=== PATIENT | female | born 1955 | race African-American/Black ===

== ENCOUNTER → 2016-05-18 | Outpatient (REF) | payer OTHER | LOC: M SFHCLERA 15:15 | PROVIDERS: ATTEND Family Medicine | DX: Z00.00 Encounter for general adult medical examination without abnormal findings (principal); E03.9 Hypothyroidism, unspecified; Z53.9 Procedure and treatment not carried out, unspecified reason ==

== ENCOUNTER → 2016-05-21 | Outpatient (REF) | payer OTHER ==
[2016-05-21 12:08] LABS: ALBUMIN 3.5 GM/DL (3.2-5.2); ALBUMIN/GLOBULIN RATIO 0.83 (1.00-1.93); ALKALINE PHOSPHATASE 67 U/L (45-117); ALT/SGPT 36 U/L (12-78); ANION GAP 7 MEQ/L (8-16); AST/SGOT 26 U/L (15-37); BILIRUBIN,TOTAL 0.5 MG/DL (0.2-1.0); BLOOD UREA NITROGEN 7 MG/DL (7-18); CALCIUM LEVEL 8.8 MG/DL (8.5-10.1); CARBON DIOXIDE LEVEL 31 MEQ/L (21-32); CHLORIDE LEVEL 101 MEQ/L (98-107); CHOLESTEROL LEVEL 211 MG/DL (<200); CREATININE FOR GFR 0.65 MG/DL (0.55-1.02); FREE T4 0.97 NG/DL (0.76-1.46); GLOMERULAR FILTRATION RATE > 60.0 (>51); GLUCOSE, FASTING 102 MG/DL (70-105); POTASSIUM SERUM 4.4 MEQ/L (3.5-5.1); SODIUM LEVEL 139 MEQ/L (136-145); TOTAL PROTEIN 7.7 GM/DL (6.4-8.2); TRIGLYCERIDES LEVEL 99 MG/DL (<150)
[2016-05-24 00:08] LABS: HEPATITIS C QUANTITATION 5215200 IU/mL (.)
== END ==
LOC: M SFHCLERA 08:33
PROVIDERS: ATTEND Family Medicine
DX: R73.02 Impaired glucose tolerance (oral) (principal); E03.9 Hypothyroidism, unspecified; B19.20 Unspecified viral hepatitis C without hepatic coma
CPT/HCPCS: 80053; 80061; 84439; 84443; 87522; G0463

== ENCOUNTER → 2016-07-01 | Outpatient (CLI) | payer OTHER ==
[2016-07-01 12:45] LABS: BASO % 0.3 % (0.0-1.0); EOS # 0.2 K/mm3 (0.0-0.50); EOS % 3.5 % (0.0-3.0); LARGE UNSTAINED CELL # 0.2 K/mm3 (0.0-0.4); LARGE UNSTAINED CELL % 3.2 % (0.0-4.0); LYMPH # 1.6 K/mm3 (1.5-4.5); LYMPH % 28.8 % (24.0-44.0); MEAN CORPUSCULAR HEMOGLOBIN 27.5 pg (27.0-33.0); MEAN CORPUSCULAR HGB CONC 32.2 g/dl (32.0-36.5); MEAN CORPUSCULAR VOLUME 85.3 fl (80.0-96.0); MONO # 0.4 K/mm3 (0.0-0.8); MONO % 8.3 % (0.0-5.0); NEUTROPHILS # 2.9 K/mm3 (1.8-7.7); PLATELET COUNT, AUTOMATED 320 k/mm3 (150-450); RED CELL DISTRIBUTION WIDTH 14.5 % (11.5-14.5); WHITE BLOOD COUNT 5.2 K/mm3 (4.0-10.0)
[2016-07-01 12:59] LABS: ALBUMIN 3.3 GM/DL (3.2-5.2); ALBUMIN/GLOBULIN RATIO 0.79 (1.00-1.93); ALKALINE PHOSPHATASE 67 U/L (45-117); ALT/SGPT 44 U/L (12-78); ANION GAP 6 MEQ/L (8-16); AST/SGOT 27 U/L (15-37); BILIRUBIN,TOTAL 0.4 MG/DL (0.2-1.0); BLOOD UREA NITROGEN 13 MG/DL (7-18); CALCIUM LEVEL 8.4 MG/DL (8.5-10.1); CARBON DIOXIDE LEVEL 32 MEQ/L (21-32); CHLORIDE LEVEL 100 MEQ/L (98-107); CREATININE FOR GFR 0.61 MG/DL (0.55-1.02); GLOMERULAR FILTRATION RATE > 60.0 (>51); GLUCOSE, FASTING 101 MG/DL (70-105); POTASSIUM SERUM 4.4 MEQ/L (3.5-5.1); SODIUM LEVEL 138 MEQ/L (136-145); TOTAL PROTEIN 7.5 GM/DL (6.4-8.2)
== END ==
LOC: M LAB 10:54
PROVIDERS: ATTEND Internal Medicine Infectious Disease
DX: B18.2 Chronic viral hepatitis C (principal); E03.9 Hypothyroidism, unspecified; R73.02 Impaired glucose tolerance (oral)

== ENCOUNTER → 2016-07-01 | Outpatient (CLI) | payer OTHER ==
[2016-07-01 13:06] LABS: ALBUMIN 3.3 GM/DL (3.2-5.2); ALKALINE PHOSPHATASE 64 U/L (45-117); ALT/SGPT 42 U/L (12-78); ANION GAP 5 MEQ/L (8-16); AST/SGOT 25 U/L (15-37); BILIRUBIN,TOTAL 0.4 MG/DL (0.2-1.0); BLOOD UREA NITROGEN 12 MG/DL (7-18); CALCIUM LEVEL 8.4 MG/DL (8.5-10.1); CARBON DIOXIDE LEVEL 33 MEQ/L (21-32); CHLORIDE LEVEL 100 MEQ/L (98-107); CHOLESTEROL LEVEL 180 MG/DL (<200); CREATININE FOR GFR 0.63 MG/DL (0.55-1.02); FREE T4 1.18 NG/DL (0.76-1.46); GLOMERULAR FILTRATION RATE > 60.0 (>51); GLUCOSE, FASTING 102 MG/DL (70-105); POTASSIUM SERUM 4.5 MEQ/L (3.5-5.1); SODIUM LEVEL 138 MEQ/L (136-145); TOTAL PROTEIN 7.4 GM/DL (6.4-8.2); TRIGLYCERIDES LEVEL 98 MG/DL (<150)
== END ==
LOC: M LAB 10:50
PROVIDERS: ATTEND Family Medicine
DX: E03.9 Hypothyroidism, unspecified (principal); R73.02 Impaired glucose tolerance (oral)

== ENCOUNTER → 2016-07-13 | Outpatient (CLI) | payer OTHER ==
--- NOTE | 2016-07-13 13:27 | REP ---
LUMBAR SPINE COMPLETE: 07/13/2016. Clinical history: Low back pain. Findings: No prior study. The five views demonstrate pedicles, spinous and transverse processes grossly intact. The L1 vertebral body shows elongated transverse processes. SI joints some minor spurring inferiorly, sacral ala and foramina intact. There are pelvic phleboliths. Lower thoracic region and visualized ribs intact. Bilateral oblique views show facet arthritis L4-5, L5-S1, minimally at L3-4 with no spondylolysis or spondylolisthesis. The normal lordosis maintained. Disc space is narrowed from L3-4 through L5-S1 with anterior osteophytes. No compression deformity of destructive lesion. Impression: 1. Degenerative disc changes at L3-4 through L5-S1 with facet arthropathy and sacroiliitis showing sclerosis and some vacuum phenomenon in the lower aspects of both SI joints. 2. No compression deformity, destructive lesion or other acute finding. Normal gentle lordosis maintained. No spondylolysis, spondylolisthesis or other acute finding. Signed by Javier Hernandez MD 07/13/2016 03:04 P
== END ==
LOC: M LRY 11:35
PROVIDERS: ATTEND Family Medicine
DX: M54.5 Low back pain (principal)
CPT/HCPCS: 72110; G0463

== ENCOUNTER → 2016-08-20 | Outpatient (REF) | payer OTHER | LOC: M SFHCPLAZ 13:15 | PROVIDERS: ATTEND Internal Medicine Infectious Disease | DX: B18.2 Chronic viral hepatitis C (principal) ==

== ENCOUNTER → 2016-11-23 | Outpatient (CLI) | payer OTHER ==
--- NOTE | 2016-11-23 16:36 | REP ---
DIAGNOSTIC MAMMOGRAM WITH DIAGNOSTIC MAMMOGRAM LEFT BREAST AND LEFT BREAST ULTRASOUND: HISTORY: Palpable abnormality with pain and tenderness 6 days in the left retroareolar region. Family history of mother with breast cancer. Moderate fibroglandular tissue is present. There is no definite change compared to prior studies, most recently 07/05/2015. No mass, architectural distortion or clustered microcalcifications are seen. No abnormalities are seen on the additional spot compression views of the left breast. Real-time sonographic evaluation of the left retroareolar region demonstrates mildly dilated ducts without a cystic or solid nodule. IMPRESSION: ACR 2 benign. Moderately dense breast parenchyma limits the sensitivity of the mammogram. No mass or clustered microcalcifications are seen. There is no mammographic or sonographic evidence of a mass in the left retroareolar region where there is reportedly a palpable abnormality. A negative mammogram and ultrasound should not deter biopsy if there is a clinically suspicious palpable mass present. Recommend followup mammogram in one year. Given the dense breast parenchyma and family history I would strongly consider MRI of the breasts. BI-RADS/ACR category 2 mammogram. Benign finding(s). Routine annual screening mammography (for women over age 40). This mammogram was interpreted with the aid of an FDA-approved computer-aided detection system. The patient states she had a clinical breast exam 10/2016. The patient letter being requested is M2. Signed by Joesph Garza MD 11/23/2016 05:27 P
== END ==
LOC: M RAD 14:31
PROVIDERS: ATTEND Family Medicine
DX: N63 Unspecified lump in breast (principal)
CPT/HCPCS: 76642; G0204

== ENCOUNTER → 2016-12-21 | Outpatient (REF) | payer OTHER ==
[2016-12-21 20:26] LABS: ANION GAP 5 MEQ/L (8-16); BLOOD UREA NITROGEN 12 MG/DL (7-18); CALCIUM LEVEL 9.3 MG/DL (8.5-10.1); CARBON DIOXIDE LEVEL 31 MEQ/L (21-32); CHLORIDE LEVEL 99 MEQ/L (98-107); CREATININE FOR GFR 0.67 MG/DL (0.55-1.02); GLOMERULAR FILTRATION RATE > 60.0 (>51); GLUCOSE, FASTING 91 MG/DL (70-105); POTASSIUM SERUM 4.1 MEQ/L (3.5-5.1); SODIUM LEVEL 135 MEQ/L (136-145)
== END ==
LOC: M SFHCLERA 17:31
PROVIDERS: ATTEND Family Medicine
DX: E66.01 Morbid (severe) obesity due to excess calories (principal)

== ENCOUNTER → 2017-01-11 | Outpatient (CLI) | payer OTHER ==
[2017-01-11 20:29] LABS: ALBUMIN 3.6 GM/DL (3.2-5.2); ALBUMIN/GLOBULIN RATIO 0.86 (1.00-1.93); ALKALINE PHOSPHATASE 77 U/L (45-117); ALT/SGPT 64 U/L (12-78); ANION GAP 8 MEQ/L (8-16); AST/SGOT 24 U/L (15-37); BILIRUBIN,TOTAL 0.3 MG/DL (0.2-1.0); BLOOD UREA NITROGEN 13 MG/DL (7-18); CALCIUM LEVEL 8.9 MG/DL (8.5-10.1); CARBON DIOXIDE LEVEL 31 MEQ/L (21-32); CHLORIDE LEVEL 100 MEQ/L (98-107); CHOLESTEROL LEVEL 169 MG/DL (<200); CREATININE FOR GFR 0.62 MG/DL (0.55-1.02); GLOMERULAR FILTRATION RATE > 60.0 (>51); GLUCOSE, FASTING 97 MG/DL (70-105); POTASSIUM SERUM 4.2 MEQ/L (3.5-5.1); SODIUM LEVEL 139 MEQ/L (136-145); TOTAL PROTEIN 7.8 GM/DL (6.4-8.2); TRIGLYCERIDES LEVEL 72 MG/DL (<150)
== END ==
LOC: M LRY 16:41
PROVIDERS: ATTEND Internal Medicine Cardiovascular Disease
DX: I10 Essential (primary) hypertension (principal); Z01.84 Encounter for antibody response examination

== ENCOUNTER → 2017-01-11 | Outpatient (REF) | payer OTHER | LOC: M SFHCLERA 16:40 | PROVIDERS: ATTEND Family Medicine | DX: Z01.84 Encounter for antibody response examination (principal) ==

== ENCOUNTER → 2017-01-17 | Outpatient (REF) | payer OTHER | LOC: M SFHCLERA 09:18 | PROVIDERS: ATTEND Family Medicine | DX: E03.9 Hypothyroidism, unspecified (principal) ==

== ENCOUNTER → 2017-02-28 | Outpatient (REF) | payer OTHER ==
[2017-02-28 14:18] LABS: ALBUMIN 3.4 GM/DL (3.2-5.2); ALBUMIN/GLOBULIN RATIO 0.81 (1.00-1.93); ALKALINE PHOSPHATASE 62 U/L (45-117); ALT/SGPT 20 U/L (12-78); ANION GAP 8 MEQ/L (8-16); AST/SGOT 10 U/L (7-37); BILIRUBIN,TOTAL 0.3 MG/DL (0.2-1.0); BLOOD UREA NITROGEN 8 MG/DL (7-18); CARBON DIOXIDE LEVEL 32 MEQ/L (21-32); CHLORIDE LEVEL 98 MEQ/L (98-107); CREATININE FOR GFR 0.57 MG/DL (0.55-1.02); GLOMERULAR FILTRATION RATE > 60.0 (>51); GLUCOSE, FASTING 95 MG/DL (70-105); POTASSIUM SERUM 4.2 MEQ/L (3.5-5.1); SODIUM LEVEL 138 MEQ/L (136-145); TOTAL PROTEIN 7.6 GM/DL (6.4-8.2)
== END ==
LOC: M SFHCLERA 09:57
PROVIDERS: ATTEND Family Medicine
DX: E03.9 Hypothyroidism, unspecified (principal); B18.2 Chronic viral hepatitis C

== ENCOUNTER → 2017-05-27 | Outpatient (REF) | payer OTHER ==
[2017-05-27 21:39] LABS: ESTIMATED AVERAGE GLUCOSE 137 MG/DL (60-110); HEMOGLOBIN A1c 6.4 %
== END ==
LOC: M SFHCLERA 08:23
DX: R73.02 Impaired glucose tolerance (oral) (principal); E03.9 Hypothyroidism, unspecified

== ENCOUNTER → 2017-11-04 | Outpatient (REF) | payer OTHER ==
[2017-11-04 11:54] LABS: BASO % 0.6 % (0.0-1.0); EOS # 0.1 10^3/uL (0.0-0.50); EOS % 2.5 % (0.0-3.0); HEMATOCRIT 42.1 % (36.0-47.0); HEMOGLOBIN 13.6 g/dl (12.0-15.5); IMMATURE GRANULOCYTE % 0.2 % (0-3.0); LYMPH # 1.6 10^3/uL (1.5-4.5); LYMPH % 31.1 % (24.0-44.0); MEAN CORPUSCULAR HEMOGLOBIN 27.3 pg (27.0-33.0); MEAN CORPUSCULAR HGB CONC 32.3 g/dl (32.0-36.5); MEAN CORPUSCULAR VOLUME 84.4 fl (80.0-96.0); MONO # 0.6 10^3/uL (0.0-0.8); MONO % 11.8 % (0.0-5.0); NEUTROPHILS # 2.8 10^3/uL (1.8-7.7); NEUTROPHILS % 53.8 % (36.0-66.0); PLATELET COUNT, AUTOMATED 366 10^3/uL (150-450); RED BLOOD COUNT 4.99 10^6/uL (4.00-5.40); RED CELL DISTRIBUTION WIDTH 15.6 % (11.5-14.5); WHITE BLOOD COUNT 5.2 10^3/uL (4.0-10.0)
[2017-11-04 12:20] LABS: VITAMIN B12 LEVEL 421 PG/ML
[2017-11-04 12:21] LABS: FOLATE 10.7 NG/ML
[2017-11-04 12:42] LABS: ALBUMIN 3.5 GM/DL (3.2-5.2); ALBUMIN/GLOBULIN RATIO 0.83 (1.00-1.93); ALKALINE PHOSPHATASE 58 U/L (45-117); ALT/SGPT 20 U/L (12-78); ANION GAP 7 MEQ/L (8-16); AST/SGOT 14 U/L (7-37); BILIRUBIN,TOTAL 0.4 MG/DL (0.2-1.0); BLOOD UREA NITROGEN 9 MG/DL (7-18); CALCIUM LEVEL 8.9 MG/DL (8.8-10.2); CARBON DIOXIDE LEVEL 33 MEQ/L (21-32); CHLORIDE LEVEL 100 MEQ/L (98-107); CREATININE FOR GFR 0.68 MG/DL (0.55-1.30); GLOMERULAR FILTRATION RATE > 60.0 (>45); GLUCOSE, FASTING 98 MG/DL (70-100); POTASSIUM SERUM 4.3 MEQ/L (3.5-5.1); SODIUM LEVEL 140 MEQ/L (136-145); TOTAL PROTEIN 7.7 GM/DL (6.4-8.2)
[2017-11-04 13:09] LABS: ESTIMATED AVERAGE GLUCOSE 143 MG/DL (60-110); HEMOGLOBIN A1c 6.6 %
== END ==
LOC: M SFHCLERA 08:43
DX: E03.9 Hypothyroidism, unspecified (principal); E11.9 Type 2 diabetes mellitus without complications; F10.10 Alcohol abuse, uncomplicated; I10 Essential (primary) hypertension
CPT/HCPCS: 82746

== ENCOUNTER → 2017-12-04 | Outpatient (CLI) | payer OTHER | LOC: M RAD 17:23 | DX: M75.42 Impingement syndrome of left shoulder (principal) | CPT/HCPCS: 73221 ==

== ENCOUNTER → 2017-12-31 | Outpatient (REF) | payer OTHER ==
[2017-12-31 11:50] LABS: ESTIMATED AVERAGE GLUCOSE 148 MG/DL (60-110); HEMOGLOBIN A1c 6.8 %
[2017-12-31 12:09] LABS: CHOLESTEROL LEVEL 192 MG/DL (<200); HDL CHOLESTEROL 55 MG/DL (>40); LDL CHOLESTEROL 124 MG/DL (<100); NON-HDL-C 137 MG/DL; TRIGLYCERIDES LEVEL 67 MG/DL (<150)
== END ==
LOC: M SFHCLERA 08:10
DX: E11.9 Type 2 diabetes mellitus without complications (principal)

== ENCOUNTER → 2018-01-01 | Outpatient (REF) | payer OTHER ==
[2018-01-01 20:50] LABS: MALB URINE SIEMENS 15.5 MG/L
[2018-01-01 20:53] LABS: MAU/CREAT RATIO 8.8 MCG/MG (0.0-30.0)
== END ==
LOC: M SFHCLERA 14:06
DX: E11.9 Type 2 diabetes mellitus without complications (principal)

== ENCOUNTER → 2018-02-27 | Outpatient (CLI) | payer OTHER | LOC: M RAD 17:22 | DX: Z12.31 Encounter for screening mammogram for malignant neoplasm of breast (principal); Z80.3 Family history of malignant neoplasm of breast; R92.1 Mammographic calcification found on diagnostic imaging of breast | CPT/HCPCS: 77067 ==

== ENCOUNTER → 2018-04-07 | Outpatient (REF) | payer OTHER ==
[~2018-04-07] MED LIST: AMLO10TA5 PO; LEVO100T5 PO; MELO15TA28 PO; METF500T13 PO; TIZA4CAP PO; VALS320T3 PO
[2018-04-07 13:44] LABS: BASO # 0.1 10^3/uL (0.0-0.2); BASO % 0.9 % (0.0-1.0); EOS # 0.2 10^3/uL (0.0-0.50); EOS % 2.6 % (0.0-3.0); HEMATOCRIT 41.6 % (36.0-47.0); HEMOGLOBIN 13.2 g/dl (12.0-15.5); LYMPH # 1.9 10^3/uL (1.5-4.5); LYMPH % 33.1 % (24.0-44.0); MEAN CORPUSCULAR HEMOGLOBIN 26.1 pg (27.0-33.0); MEAN CORPUSCULAR HGB CONC 31.7 g/dl (32.0-36.5); MEAN CORPUSCULAR VOLUME 82.4 fl (80.0-96.0); MONO # 0.6 10^3/uL (0.0-0.8); MONO % 11.1 % (0.0-5.0); PLATELET COUNT, AUTOMATED 361 10^3/uL (150-450); RED BLOOD COUNT 5.05 10^6/uL (4.00-5.40); WHITE BLOOD COUNT 5.7 10^3/uL (4.0-10.0)
[2018-04-07 13:54] LABS: ALBUMIN 3.7 GM/DL (3.2-5.2); ALT/SGPT 18 U/L (12-78); BILIRUBIN,TOTAL 0.3 MG/DL (0.2-1.0); BLOOD UREA NITROGEN 11 MG/DL (7-18); CALCIUM LEVEL 8.8 MG/DL (8.8-10.2); CARBON DIOXIDE LEVEL 30 MEQ/L (21-32); CHLORIDE LEVEL 103 MEQ/L (98-107); CHOLESTEROL LEVEL 197 MG/DL (<200); CHOLESTEROL RISK RATIO 3.126 (<5); CREATININE FOR GFR 0.62 MG/DL (0.55-1.30); GLOMERULAR FILTRATION RATE > 60.0 (>45); GLUCOSE, FASTING 88 MG/DL (70-100); HDL CHOLESTEROL 63 MG/DL (>40); INR 1.07; LDL CHOLESTEROL 121 MG/DL (<100); NON-HDL-C 134 MG/DL; POTASSIUM SERUM 4.7 MEQ/L (3.5-5.1); PROTHROMBIN TIME 14.1 SECONDS (12.1-14.4); SODIUM LEVEL 138 MEQ/L (136-145); TOTAL PROTEIN 7.7 GM/DL (6.4-8.2); TRIGLYCERIDES LEVEL 67 MG/DL (<150)
[2018-04-07 13:55] LABS: PARTIAL THROMBOPLASTIN TIME 33.5 SECONDS (25.4-37.6)
== END ==
LOC: M SFHCLERA 09:53
PROVIDERS: ATTEND Family Medicine
DX: Z01.812 Encounter for preprocedural laboratory examination (principal); E11.9 Type 2 diabetes mellitus without complications; E03.9 Hypothyroidism, unspecified
CPT/HCPCS: 80053; 80061; 83036; 84443; 85025; 85610; 85730; 93005; G0463

== ENCOUNTER 2018-04-09 06:18 | Day surgery (SDC) | payer OTHER ==
[~2018-04-09] VITALS: Ht 165.1 cm; Wt 114.3 kg
[~2018-04-09 06:18] MED LIST changes: +ACETAMINOPHEN 325 MG TAB PO PRN
[2018-04-09] MEDS ORDERED: LIDOCAINE 1% SDV 5 ML VIAL As Ordered ONE (06:40)
[2018-04-09] MEDS ORDERED: POVIDONE-IODINE 5% OPHTH PREP SOL 30ML As Ordered ONE (06:40)
[2018-04-09] MEDS ORDERED: TRIAMCINOLONE PRES FR 40 MG/ML 1ML(TRIESENCE)(OR EYE ONLY)(J3300 PER 1MG) As Ordered ONE (06:40)
[2018-04-09] MEDS ORDERED: MOXIFLOXACIN IN BSS 0.25MG/0.25ML INTRACAMERAL INJ (OR EYE ONLY)(J2280) As Ordered ONE (06:41)
[2018-04-09] MEDS ORDERED: HEALON DUET PRO(HEALON 10MG/ML 0.55ML & HEALON ENDOCOAT 30MG/ML 0.85ML) As Ordered ONE (06:41)
[2018-04-09] MEDS ORDERED: CYCLOPENTOLATE 2% OPHTH SOLN 2ML BTL OD ONE (07:00)
[2018-04-09] MEDS ORDERED: TROPICAMIDE 1% OPHTH SOLN 2ML OD ONE (07:00)
[2018-04-09] MEDS ORDERED: BSS with VANC/TOB/EPI for EYE CASES IR ONE (07:00)
[2018-04-09] MEDS ORDERED: PHENYLEPHRINE HCL 10 % OPHTH. SOL 5ML OD PRN (07:00)
[2018-04-09] MEDS ORDERED: OFLOXACIN 0.3 % (OCUFLOX) OPTH SOL 5ML OD ONE (07:00)
[2018-04-09] MEDS ORDERED: PHENYLEPHRINE 2.5% OPHTH SOL 2ML OD ONE (07:00)
[2018-04-09] MEDS ORDERED: LIDOCAINE 3.5 % 1ML OPHTH TOPICAL GEL OU ONE (07:00)
[2018-04-09] MEDS ORDERED: MIDAZOLAM INJ 2 MG/2 ML VIAL (J2250) As Ordered ONE (07:14)
[2018-04-09] MEDS ORDERED: PROPOFOL 200 MG/20 ML VIAL As Ordered ONE (08:18)
[2018-04-09] MEDS ORDERED: AcetaZOLAMIDE 500 MG ER CAP PO ONE (08:45)
[2018-04-09] MEDS ORDERED: ONDANSETRON 4MG/2ML VIAL (J2405) IV PRN (08:45)
[2018-04-09] MEDS ORDERED: TRIMETHOBENZAMIDE 300 MG CAP PO PRN (08:45)
[2018-04-09 09:25] VITALS: BP 143/73
--- NOTE | 2018-04-09 10:10 | RO ---
DATE OF PROCEDURE: 04/09/2018 PREOPERATIVE DIAGNOSES: Cataract and miosis right eye. POSTOPERATIVE DIAGNOSIS: Cataract and miosis right eye. PROCEDURE: Phacoemulsification with intraocular lens implantation along with Malyugin ring for miosis and ORA. Intraocular lens of AU00T, power 26.5 diopters. SURGEON: Ragini Mcelroy MD REMEDIAL PROJECT MANAGER: None. ANESTHESIA: COMPLICATIONS: None. PROCEDURE: The patient was brought to the operating room and laid in supine position. The eye was prepped and draped in a sterile fashion for ophthalmic surgery, and a lid speculum was placed. A side port incision was made and EndoCoat was injected into the anterior chamber. Temporal clear cornea incision was then made with a 2.5 mm keratome followed by injection of the 7 mm Malyugin ring to dilate the pupil with the help of the Malyugin hook. Capsulorrhexis was then done followed by hydrodissection. Phacoemulsification was then done in a divide and conquer method within the capsular bag followed by the aspiration of the cortical material, following which Healon was placed in the capsular bag and the anterior chamber. Intraocular pressure was checked and multiple ORA calculations were taken before choosing the intraocular lens, which was then subsequently inserted. Excess viscoelastic was then aspirated. The wound was hydrated, no leaks were noted. Intracameral moxifloxacin was given and sub-Tenon injection of triamcinolone was given. I forgot to mention that prior to irrigation and aspiration of the viscoelastic, Malyugin ring was removed with the help of the Malyugin hook.
== END 2018-04-10 09:50 | disposition home or self-care (01) ==
LOC: M SDC 06:18
PROVIDERS: ATTEND Ophthalmology
DX: H26.9 Unspecified cataract (principal); H57.03 Miosis; I10 Essential (primary) hypertension; R01.1 Cardiac murmur, unspecified; R73.03 Prediabetes; E03.9 Hypothyroidism, unspecified; R06.02 Shortness of breath; R06.83 Snoring; G47.9 Sleep disorder, unspecified; M54.5 Low back pain; Z79.899 Other long term (current) drug therapy; Z79.84 Long term (current) use of oral hypoglycemic drugs; Z90.710 Acquired absence of both cervix and uterus; Z87.81 Personal history of (healed) traumatic fracture; Z86.19 Personal history of other infectious and parasitic diseases
CPT/HCPCS: 66982; J2250; J2280; J3300

== ENCOUNTER 2018-05-28 05:40 | Day surgery (SDC) | payer OTHER ==
[~2018-05-28] VITALS: Ht 165.1 cm; Wt 111.6 kg
[~2018-05-28 05:40] MED LIST changes: -ACETAMINOPHEN 325 MG TAB PO PRN; +ATOR1TAB19 PO
[2018-05-28] MEDS ORDERED: ACETAMINOPHEN 325 MG TAB PO PRN (06:00)
[2018-05-28] MEDS ORDERED: TRIAMCINOLONE PRES FR 40 MG/ML 1ML(TRIESENCE)(OR EYE ONLY)(J3300 PER 1MG) As Ordered ONE (06:40)
[2018-05-28] MEDS ORDERED: LIDOCAINE 1% SDV 5 ML VIAL As Ordered ONE (06:41)
[2018-05-28] MEDS ORDERED: MOXIFLOXACIN IN BSS 0.25MG/0.25ML INTRACAMERAL INJ (OR EYE ONLY)(J2280) As Ordered ONE (06:41)
[2018-05-28] MEDS ORDERED: POVIDONE-IODINE 5% OPHTH PREP SOL 30ML As Ordered ONE (06:42)
[2018-05-28] MEDS ORDERED: HEALON DUET PRO(HEALON 10MG/ML 0.55ML & HEALON ENDOCOAT 30MG/ML 0.85ML) As Ordered ONE ×2 (06:42→08:12)
[2018-05-28] MEDS ORDERED: MIDAZOLAM INJ 2 MG/2 ML VIAL (J2250) As Ordered ONE (06:50)
[2018-05-28] MEDS ORDERED: fentaNYL 100 MCG/2 ML INJECTION (J3010) As Ordered ONE (06:50)
[2018-05-28] MEDS ORDERED: LIDOCAINE 2% W/EPIN INJ 20ML **PRES FREE As Ordered ONE (06:59)
[2018-05-28] MEDS ORDERED: TROPICAMIDE 1% OPHTH SOLN 2ML OS ONE (07:00)
[2018-05-28] MEDS ORDERED: BSS with VANC/TOB/EPI for EYE CASES IR ONE (07:00)
[2018-05-28] MEDS ORDERED: PHENYLEPHRINE HCL 10 % OPHTH. SOL 5ML OS PRN (07:00)
[2018-05-28] MEDS ORDERED: PHENYLEPHRINE 2.5% OPHTH SOL 2ML OS ONE (07:00)
[2018-05-28] MEDS ORDERED: CYCLOPENTOLATE 2% OPHTH SOLN 2ML BTL OS ONE (07:00)
[2018-05-28] MEDS ORDERED: OFLOXACIN 0.3 % (OCUFLOX) OPTH SOL 5ML OS ONE (07:00)
[2018-05-28] MEDS ORDERED: LIDOCAINE 3.5 % 1ML OPHTH TOPICAL GEL OU ONE (07:00)
[2018-05-28] MEDS ORDERED: PROPOFOL 200 MG/20 ML VIAL As Ordered ONE (08:14)
[2018-05-28] MEDS ORDERED: AcetaZOLAMIDE 500 MG ER CAP As Ordered ONE (08:34)
[2018-05-28] MEDS ORDERED: TRIMETHOBENZAMIDE 300 MG CAP PO PRN (08:45)
[2018-05-28] MEDS ORDERED: AcetaZOLAMIDE 500 MG ER CAP PO ONE ×2 (08:45→09:00)
[2018-05-28 08:55] VITALS: BP 136/72
--- NOTE | 2018-05-28 20:40 | RO ---
DATE OF PROCEDURE: 05/28/2018 PREPROCEDURE DIAGNOSIS: Cataract and miosis of left eye. POSTPROCEDURE DIAGNOSIS: Cataract and miosis of left eye. PROCEDURE: Phacoemulsification with insertion of Malyugin ring 7 mm and intraocular lens implantation using 27.0 AU00T0 intraocular lens with the help of Optiwave Refractive Analysis (ORA). SURGEON: Ragini Mcelroy MD CRIMINAL INTELLIGENCE ANALYST: None. ANESTHESIA: COMPLICATIONS: None. DESCRIPTION OF PROCEDURE: The patient was brought to the operating room and laid in supine position. The eye was prepped and draped in a sterile fashion for ophthalmic surgery and a lid speculum was placed. A sideport incision was made and EndoCoat was injected into the anterior chamber. Temporal clear corneal incision was then made with a 2.5 mm keratome followed by insertion of the 7 mm Malyugin ring with the help of the Malyugin hook. After the Malyugin ring was secured and the pupil was dilated, capsulorrhexis was done followed by hydrodissection with balanced salt solution. Phacoemulsification was then done in a divide and conquer method within the capsular bag followed by insertion of the Healon. Intraocular pressure was checked. Multiple ORA images were taken following which intraocular lens was implanted. Malyugin ring was then removed. Excess viscoelastic aspirated. Intracameral moxifloxacin and sub Tenon triamcinolone given. No leaks were noted and patient returned to recovery room in stable condition.
== END 2018-05-28 09:10 | disposition home or self-care (01) ==
LOC: M SDC 05:40
PROVIDERS: ATTEND Ophthalmology
DX: H26.9 Unspecified cataract (principal); H57.03 Miosis; E11.9 Type 2 diabetes mellitus without complications; I10 Essential (primary) hypertension; E78.5 Hyperlipidemia, unspecified; E03.9 Hypothyroidism, unspecified; E66.01 Morbid (severe) obesity due to excess calories; Z87.891 Personal history of nicotine dependence; Z79.899 Other long term (current) drug therapy; Z79.84 Long term (current) use of oral hypoglycemic drugs
CPT/HCPCS: 66982; 92015; J2250; J2280; J3010; J3300

== ENCOUNTER → 2018-06-05 | Outpatient (CLI) | payer OTHER ==
--- NOTE | 2018-06-05 20:42 | REP ---
Clinical: Right hip pain. Technique: Neutral and frog lateral views of the right hip. Findings: Mild age-related changes include subtle joint space narrowing with very minimal increased sclerosis to the acetabular roof. No acute fracture dislocation. No periarticular calcifications or loose bodies identified. Mild enthesopathy along the contour of the visualized right alice pelvis. Impression: Mild age-related changes suggested. Electronically Signed by Von Foster MD 06/05/2018 08:34 P
== END ==
LOC: M LRY 20:05
PROVIDERS: ATTEND Nurse Practitioner Family
DX: M25.551 Pain in right hip (principal); M76.891 Other specified enthesopathies of right lower limb, excluding foot

== ENCOUNTER → 2018-08-11 | Outpatient (CLI) | payer OTHER ==
[2018-08-11 21:00] LABS: HEMOGLOBIN A1c 6.9 %
== END ==
LOC: M LRY 18:14
PROVIDERS: ATTEND Family Medicine
DX: E11.9 Type 2 diabetes mellitus without complications (principal)

== ENCOUNTER → 2018-11-27 | Outpatient (REF) | payer OTHER ==
[2018-11-27 20:59] LABS: HEMOGLOBIN A1c 6.9 %
[2018-11-28 20:44] LABS: MALB URINE SIEMENS 35.1 MG/L; MAU/CREAT RATIO 16.9 MCG/MG (0.0-30.0)
== END ==
LOC: M SFHCADAM 17:15
PROVIDERS: ATTEND Family Medicine
DX: E11.9 Type 2 diabetes mellitus without complications (principal)

== ENCOUNTER → 2018-12-02 | Outpatient (REF) | payer OTHER ==
[2018-12-02 20:23] LABS: BASO # 0.1 10^3/uL (0.0-0.2); BASO % 0.7 % (0.0-1.0); EOS # 0.2 10^3/uL (0.0-0.5); EOS % 2.6 % (0.0-3.0); HEMATOCRIT 41.2 % (36.0-47.0); HEMOGLOBIN 13.1 g/dl (12.0-15.5); LYMPH % 27.5 % (24.0-44.0); MEAN CORPUSCULAR HEMOGLOBIN 26.1 pg (27.0-33.0); MEAN CORPUSCULAR HGB CONC 31.8 g/dl (32.0-36.5); MEAN CORPUSCULAR VOLUME 82.1 fl (80.0-96.0); MONO # 0.7 10^3/uL (0.0-0.8); MONO % 9.1 % (0.0-5.0); NEUTROPHILS # 4.4 10^3/uL (1.5-8.5); PLATELET COUNT, AUTOMATED 350 10^3/uL (150-450); RED BLOOD COUNT 5.02 10^6/uL (4.00-5.40); WHITE BLOOD COUNT 7.3 10^3/uL (4.0-10.0)
[2018-12-02 20:36] LABS: APPEARANCE, URINE CLEAR (CLEAR); BACTERIA, URINE AUTO NEGATIVE (NEGATIVE); BILIRUBIN, URINE AUTO NEGATIVE (NEGATIVE); BLOOD, URINE BLOOD NEGATIVE (NEGATIVE); COLOR, URINE STRAW (YELLOW); GLUCOSE, URINE (UA) AUTO NEGATIVE (NEGATIVE); KETONE, URINE AUTO NEGATIVE (NEGATIVE); LEUKOCYTE ESTERASE, URINE AUTO NEGATIVE (NEGATIVE); MUCUS, URINE SMALL (NEGATIVE); NITRITE, URINE AUTO NEGATIVE (NEGATIVE); PROTEIN, URINE AUTO NEGATIVE (NEGATIVE); RBC, URINE AUTO 0 /HPF (0-3); SPECIFIC GRAVITY URINE AUTO 1.011 (1.002-1.035); SQUAMOUS EPITHELIAL CELL UR AU 0 /HPF (0-6); UROBILINOGEN, URINE AUTO 0.2 mg/dL (0.0-2.0); WBC, URINE AUTO 0 /HPF (0-3)
[2018-12-02 20:43] LABS: ALBUMIN 3.6 GM/DL (3.2-5.2); ALT/SGPT 18 U/L (12-78); BILIRUBIN,TOTAL 0.3 MG/DL (0.2-1.0); BLOOD UREA NITROGEN 9 MG/DL (7-18); CALCIUM LEVEL 8.9 MG/DL (8.8-10.2); CARBON DIOXIDE LEVEL 32 MEQ/L (21-32); CHLORIDE LEVEL 101 MEQ/L (98-107); CHOLESTEROL LEVEL 164 MG/DL (<200); CHOLESTEROL RISK RATIO 2.562 (<5); CPK CREATINE PHOSPHOKINASE 141 U/L (26-192); CREATININE FOR GFR 0.57 MG/DL (0.55-1.30); GLOMERULAR FILTRATION RATE > 60.0 (>45); GLUCOSE, FASTING 91 MG/DL (70-100); HDL CHOLESTEROL 64 MG/DL (>40); LDL CHOLESTEROL 87 MG/DL (<100); NON-HDL-C 100 MG/DL; POTASSIUM SERUM 4.8 MEQ/L (3.5-5.1); RHEUMATOID FACTOR QUANT < 10.0 IU/ML (<15.0); SODIUM LEVEL 137 MEQ/L (136-145); TOTAL PROTEIN 7.6 GM/DL (6.4-8.2); TRIGLYCERIDES LEVEL 64 MG/DL (<150)
[2018-12-08 14:30] LABS: ANA (HEP2) Positive (.); ANTI CENTROMERE ANTIBODY <0.2 AI (0.0-0.9); ANTI SCLERODERMA ANTIBODIES <0.2 AI (0.0-0.9); CYCLIC CITRULLINATED PEPTIDE 4 units (0-19); RNA POLYMERASE III IgG AB 34.6 Units/ml (.)
== END ==
LOC: M SFHCLERA 10:40
PROVIDERS: ATTEND Family Medicine
DX: E78.2 Mixed hyperlipidemia (principal); E03.9 Hypothyroidism, unspecified; R23.4 Changes in skin texture
CPT/HCPCS: 80053; 80061; 81001; 82550; 83520; 84443; 85025; 86038; 86200; 86235; 86255; 86431; G0463

== ENCOUNTER → 2019-03-10 | Outpatient (CLI) | payer OTHER ==
--- NOTE | 2019-03-10 15:08 | REP ---
Left hand series: Four views. History: Left wrist pain. Findings: Overall mineralization pattern is normal. No fracture is seen. There is mild osteoarthritic spurring at the first carpometacarpal articulation. Bones, joints and soft tissues are otherwise unremarkable. Impression: Mild first carpometacarpal joint osteoarthritic spurring. Otherwise negative. Electronically Signed by Zachary Mccoy MD 03/10/2019 05:19 P
== END ==
LOC: M LRY 10:55
PROVIDERS: ATTEND Family Medicine
DX: M65.4 Radial styloid tenosynovitis [de Quervain] (principal)

== ENCOUNTER → 2019-03-10 | Outpatient (REF) | payer OTHER ==
[2019-03-10 17:27] LABS: HEMOGLOBIN A1c 6.9 %
== END ==
LOC: M SFHCLERA 10:18
PROVIDERS: ATTEND Family Medicine
DX: E11.9 Type 2 diabetes mellitus without complications (principal); E03.9 Hypothyroidism, unspecified; M65.4 Radial styloid tenosynovitis [de Quervain]
CPT/HCPCS: 73130; 83036; 84443; 90471; 90682; G0463

== ENCOUNTER → 2019-03-18 | Outpatient (CLI) | payer OTHER ==
--- NOTE | 2019-03-18 15:41 | PFTRPT ---
Site: [facility], [address] [place], [address] ID: [id number] Name: MARY FLAHERTY Visit Date: 03/18/2019 Second ID: [id number] Referring Doctor: Ema Carr MD Reviewing Doctor: Berny Valentine MD Cut Off Machine Unloader: Judith Jack Age: 64 : 1955 Sex: Female Race: Black Height: 65.00 Inches Weight: 253.00 Lbs BSA: 2.19 Order IDs: [id number] Requested Test(s): <RESP-PFT.DLCO> Diagnosis: R06.02 test meet the ATS standards for acceptability and repeatability. IVC is less than 90% of VC. DLCO may be underestimated. Pt was given four puffs of albuterol for postbronchodilator. Review Status: Not Reviewed Pre-Bronch Post-Bronch Pred Actual %Pred Actual %Chng SPIROMETRY FVC (L) 2.72 1.49 54 1.62 8 FEV1 (L) 2.13 1.33 62 1.36 2 FEV1/FVC (%) 79 89 112 84 -5 FEF 25% (L/sec) 5.04 5.04 99 3.33 -33 FEF 50% (L/sec) 3.57 2.82 78 2.65 -5 FEF 75% (L/sec) 1.16 0.80 69 0.74 -7 FEF 25-75% (L/sec) 2.07 2.07 100 1.73 -16 FEF Max (L/sec) 5.63 5.12 91 3.45 -32 FIVC (L) 1.59 1.66 4 FIF 50% (L/sec) 3.88 2.53 65 1.91 -24 FIF Max (L/sec) 2.71 2.33 -13 MVV (L/min) 92 67 72 Expiratory Time (sec) 7.12 6.80 -4 Back Extrap Vol (L) 0.09 0.10 5 Time To FEFmax (sec) 0.080 0.132 64 LUNG VOLUMES SVC (L) 3.12 1.87 59 IC (L) 2.25 1.29 57 ERV (L) 0.87 0.58 66 TGV (L) 2.95 1.48 50 RV (Pleth) (L) 2.08 0.90 43 TLC (Pleth) (L) 5.20 2.77 53 RV/TLC (Pleth) (%) 40 32 81 DIFFUSION DLCOunc (ml/min/mmHg) 21.81 15.55 71 DLCOcor (ml/min/mmHg) 21.81 15.96 73 DL/VA (ml/min/mmHg/L) 4.19 5.74 137 VA (L) 5.20 2.78 53 BHT (sec) 10.40 IVC (L) 1.54 TLC (SB) (L) 2.93 AIRWAYS RESISTANCE Raw (cmH2O/L/s) 1.86 2.82 151 Gaw (L/s/cmH2O) 1.03 0.36 35 sRaw (cmH2O*s) 4.76 4.94 103 sGaw (1/cmH2O*s) 0.20 0.20 101 BLOOD GASES Hgb (gm/dL) 12.6
== END ==
LOC: M CARPUL 14:44
PROVIDERS: ATTEND Family Medicine
DX: R06.02 Shortness of breath (principal)

== ENCOUNTER → 2019-05-22 | Outpatient (CLI) | payer OTHER ==
--- NOTE | 2019-05-22 16:58 | REPMRS ---
Patient History The patient states she had a clinical breast exam in March 2019. Family history of breast cancer at age 60 in mother. Digital Woman Screen Mammo: May 22, 2019 - Exam #: [id number] Bilateral CC and MLO view(s) were taken. Technologist: Katy Saxena, Technologist Prior study comparison: February 27, 2018, bilateral digital mammo screening bilat, performed at [facility]. November 23, 2016, digital mammo diagnostic bilateral, performed at [facility]. FINDINGS: The breast tissue is heterogeneously dense. This may lower the sensitivity of mammography. Nodular fibroglandular elements are noted bilaterally unchanged from the 2017 prior study. There is a moderate amount of heterogeneously dense fibroglandular tissue which is fairly symmetric. There is no interval development of dominant mass, architectural distortion, or grouped microcalcification typical of malignancy. There has been no change in the appearance of the mammogram from the prior studies. 3-D tomosynthesis shows no additional findings. Assessment: BI-RADS/ACR category 2 mammogram. Benign Findings. Recommendation Routine screening mammogram of both breasts in 1 year (for women over age 40). This patient's Lifetime Breast Cancer RIsk is estimated at 17.7 %. This mammogram was interpreted with the aid of an FDA-approved computer-aided dectection system. Electronically Signed By: Griffin Mccoy MD 05/22/19 2228
== END ==
LOC: M WHC 15:18
PROVIDERS: ATTEND Family Medicine
DX: Z12.31 Encounter for screening mammogram for malignant neoplasm of breast (principal); Z80.3 Family history of malignant neoplasm of breast

== ENCOUNTER → 2019-06-01 | Outpatient (REF) | payer OTHER ==
[2019-06-01 20:18] LABS: BASO % 0.4 % (0.0-1.0); EOS # 0.2 10^3/uL (0.0-0.5); EOS % 2.5 % (0.0-3.0); HEMATOCRIT 38.7 % (36.0-47.0); HEMOGLOBIN 12.2 g/dl (12.0-15.5); LYMPH # 2.1 10^3/uL (1.5-5.0); LYMPH % 27.6 % (24.0-44.0); MEAN CORPUSCULAR HEMOGLOBIN 26.1 pg (27.0-33.0); MEAN CORPUSCULAR HGB CONC 31.5 g/dl (32.0-36.5); MEAN CORPUSCULAR VOLUME 82.7 fl (80.0-96.0); MONO # 1.1 10^3/uL (0.0-0.8); MONO % 14.9 % (0.0-5.0); NEUTROPHILS # 4.2 10^3/uL (1.5-8.5); NEUTROPHILS % 54.3 % (36.0-66.0); RED BLOOD COUNT 4.68 10^6/uL (4.00-5.40); WHITE BLOOD COUNT 7.7 10^3/uL (4.0-10.0)
[2019-06-01 20:21] LABS: ALBUMIN 3.4 GM/DL (3.2-5.2); ALT/SGPT 21 U/L (12-78); BILIRUBIN,TOTAL 0.2 MG/DL (0.2-1.0); BLOOD UREA NITROGEN 12 MG/DL (7-18); C REACTIVE PROTEIN QUANTITATIV 0.54 MG/DL (0.00-0.30); CALCIUM LEVEL 8.8 MG/DL (8.8-10.2); CARBON DIOXIDE LEVEL 31 MEQ/L (21-32); CHLORIDE LEVEL 106 MEQ/L (98-107); COMPLEMENT C3 130 MG/DL (90-180); COMPLEMENT C4 39 MG/DL (10-40); CPK CREATINE PHOSPHOKINASE 189 U/L (26-192); CREATININE FOR GFR 0.64 MG/DL (0.55-1.30); GLOMERULAR FILTRATION RATE > 60.0 (>45); GLUCOSE, FASTING 111 MG/DL (70-100); POTASSIUM SERUM 4.4 MEQ/L (3.5-5.1); RHEUMATOID FACTOR QUANT < 10.0 IU/ML (<15.0); SODIUM LEVEL 139 MEQ/L (136-145); TOTAL PROTEIN 7.6 GM/DL (6.4-8.2)
[2019-06-01 20:57] LABS: ERYTHROCYTE SEDIMENTATION RATE 28 mm/hr (0-30)
== END ==
LOC: M SFHCRHEU 17:41
PROVIDERS: ATTEND Internal Medicine
DX: M25.50 Pain in unspecified joint (principal); Z86.19 Personal history of other infectious and parasitic diseases; R76.8 Other specified abnormal immunological findings in serum

== ENCOUNTER → 2019-06-05 | Outpatient (CLI) | payer OTHER ==
--- NOTE | 2019-06-06 14:46 | REP ---
CT chest without contrast: History: Restrictive lung disease. Comparison chest x-ray August 17, 2013. No comparison chest CT study. CT findings: Preliminary digital bladder trimmer radiograph is unremarkable. Lung argueta are essentially clear. No pulmonary mass lesion or nodule is appreciated. There is a small air cyst in the right upper lobe peripherally. Just anterior to this in the right upper lobe, there is a subtle area of interstitial change. No other evidence of interstitial lung disease. No other infiltrate is seen. No pleural or pericardial effusion is appreciated. No hilar or mediastinal mass or adenopathy is seen. There are gallstones filling the lumen of the gallbladder. No adrenal lesion is seen. The visualized upper abdominal structures are otherwise unremarkable. Impression: Very subtle interstitial infiltrate laterally in the right upper lobe. Small air cyst in this region. Otherwise no active cardiopulmonary disease. Cholelithiasis. Electronically Signed by Zachary Mccoy MD 06/06/2019 03:14 P
== END ==
LOC: M RAD 16:56
PROVIDERS: ATTEND Family Medicine
DX: J45.909 Unspecified asthma, uncomplicated (principal)

== ENCOUNTER → 2019-07-06 | Outpatient (REF) | payer OTHER ==
[2019-07-06 17:07] LABS: TOTAL PROTEIN,RANDOM URINE 14.7 MG/DL (0.0-12.0)
== END ==
LOC: M SFHCRHEU 15:28
PROVIDERS: ATTEND Internal Medicine
DX: R60.0 Localized edema (principal)
CPT/HCPCS: 82570; 84156; G0463

== ENCOUNTER → 2019-09-23 | Outpatient (REF) | payer OTHER ==
[~2019-09-23] MED LIST changes: -AMLO10TA5 PO; +AMLO1TAB25 PO
[2019-09-23 16:46] LABS: CHOLESTEROL RISK RATIO 2.35 (<5)
[2019-09-23 17:41] LABS: HEMOGLOBIN A1c 7.5 %
== END ==
LOC: M SFHCLERA 12:30
PROVIDERS: ATTEND Family Medicine
DX: L81.9 Disorder of pigmentation, unspecified (principal)

== ENCOUNTER → 2019-12-03 | Outpatient (REF) | payer OTHER | LOC: M LAB REF 08:06 | PROVIDERS: ATTEND Physician Assistant | DX: R21 Rash and other nonspecific skin eruption (principal) ==

== ENCOUNTER → 2019-12-18 | Outpatient (CLI) | payer OTHER ==
--- NOTE | 2019-12-23 14:22 | SLEEPCENT ---
DATE: 12/18/2019 ORDERED BY: Dr. Hussein Nocturnal polysomnography was performed for evaluation of sleep physiology in this patient with a history of snoring and morning headaches, who has comorbidities of hypertension and diabetes. There was 7 hours and 55 minutes of data reviewed. There were 371 minutes of sleep identified. Sleep latency was mildly prolonged at 26 minutes. REM latency was normal at 98 minutes. Sleep architecture initially showed severe fragmentation, Improvement was seen after interventions were made. Overall sleep efficiency for the test was 79.4%. The electrocardiogram showed sinus rhythm with small complexes. Average heart rate was 72 beats per minute. EEG showed normal waveforms for wake and sleep. There were 150 respiratory events identified of 10 seconds in duration or greater for an apnea-hypopnea index of 23.4. Having clearly established the presence of obstructive sleep apnea syndrome early in testing, the study was stopped shortly after 1 a.m. for the application of pressure therapy. The patient was thereafter fit with a SelSahara Simplus full-face mask of large size. There was 4 cm of water pressure applied to the circuit and the lights were extinguished. Throughout the remaining hours of testing, titration was performed. Best sleep was seen on a CPAP pressure of +15. IMPRESSION: Obstructive sleep apnea syndrome (G47.33). Apnea-hypopnea index 24.3. RECOMMENDATION: Nightly use of pressure therapy, 15 cm of water. MTDD
== END ==
LOC: M SLEEP 20:00
PROVIDERS: ATTEND Internal Medicine Pulmonary Disease
DX: G47.33 Obstructive sleep apnea (adult) (pediatric) (principal)

== ENCOUNTER → 2020-01-14 | Outpatient (REF) | payer OTHER ==
[2020-01-14 20:23] LABS: BLOOD UREA NITROGEN 10 MG/DL (7-18); CALCIUM LEVEL 8.8 MG/DL (8.8-10.2); CARBON DIOXIDE LEVEL 32 MEQ/L (21-32); CHLORIDE LEVEL 103 MEQ/L (98-107); CREATININE FOR GFR 0.68 MG/DL (0.55-1.30); GLOMERULAR FILTRATION RATE > 60.0 (>45); GLUCOSE, FASTING 102 MG/DL (70-100); POTASSIUM SERUM 4.1 MEQ/L (3.5-5.1); SODIUM LEVEL 140 MEQ/L (136-145)
[2020-01-14 20:46] LABS: HEMOGLOBIN A1c 6.5 %
== END ==
LOC: M SFHCLERA 08:20
PROVIDERS: ATTEND Family Medicine
DX: E11.9 Type 2 diabetes mellitus without complications (principal)

== ENCOUNTER 2020-08-09 13:28 | Emergency (ER) | payer OTHER ==
[~2020-08-09] VITALS: Ht 165.1 cm; Wt 119.1 kg
[2020-08-09] MEDS ORDERED: ECOT81TA5 PO (13:35)
[2020-08-09] MEDS ORDERED: MECL-136 PO (13:35)
[2020-08-09] MEDS: METOPROLOL 5 MG/5 ML VIAL IV SCH ×3 (14:25→14:41)
--- NOTE | 2020-08-09 14:34 | REP ---
INDICATION: CHEST PAIN. COMPARISON: 08/17/2013. TECHNIQUE: Single portable AP view of the chest was performed. FINDINGS: There is no acute infiltrate or pulmonary edema. Lungs are clear. The heart is not significantly enlarged. The mediastinal silhouette is unremarkable. The visualized osseous structures are intact. IMPRESSION: No acute pulmonary disease. <Electronically signed by Joesph Garza > 08/09/20 [id number]
[2020-08-09 14:35] LABS: INR 1.13; PROTHROMBIN TIME 14.8 SECONDS (12.5-14.3)
[2020-08-09 14:36] LABS: PARTIAL THROMBOPLASTIN TIME 31.5 SECONDS (24.2-38.5)
[2020-08-09 14:54] LABS: ALBUMIN 3.3 GM/DL (3.2-5.2); ALT/SGPT 20 U/L (12-78); BILIRUBIN,DIRECT < 0.1 MG/DL (0.0-0.2); BILIRUBIN,TOTAL 0.4 MG/DL (0.2-1.0); BLOOD UREA NITROGEN 12 MG/DL (7-18); CALCIUM LEVEL 9.2 MG/DL (8.8-10.2); CARBON DIOXIDE LEVEL 28 MEQ/L (21-32); CHLORIDE LEVEL 103 MEQ/L (98-107); CK-MB VALUE MASS < 1.0 NG/ML (<3.6); CPK CREATINE PHOSPHOKINASE 151 U/L (26-192); CREATININE FOR GFR 0.69 MG/DL (0.55-1.30); FREE T4 1.14 NG/DL (0.76-1.46); GLOMERULAR FILTRATION RATE > 60.0 (>45); GLUCOSE, FASTING 156 MG/DL (70-100); LIPASE 22 U/L (73-393); MB/CK RELATIVE INDEX 0.66 (< OR =4); NT-PRO BNP 297 PG/ML (<125); POTASSIUM SERUM 4.1 MEQ/L (3.5-5.1); SODIUM LEVEL 138 MEQ/L (136-145); TOTAL PROTEIN 7.6 GM/DL (6.4-8.2); TROPONIN I < 0.02 NG/ML (< 0.10)
[2020-08-09] MEDS ORDERED: METOPROLOL TART 25 MG TABLET PO ONE ×2 (15:05→16:45)
[2020-08-09 15:09] LABS: BASO % 0.5 % (0.0-1.0); EOS # 0.2 10^3/uL (0.0-0.5); HEMATOCRIT 38.8 % (36.0-47.0); HEMOGLOBIN 12.4 g/dl (12.0-15.5); LYMPH # 2.1 10^3/uL (1.5-5.0); LYMPH % 27.8 % (24.0-44.0); MEAN CORPUSCULAR HEMOGLOBIN 26.2 pg (27.0-33.0); MONO # 0.7 10^3/uL (0.0-0.8); MONO % 9.9 % (2.0-8.0); NEUTROPHILS # 4.4 10^3/uL (1.5-8.5); NEUTROPHILS % 59.5 % (36.0-66.0); PLATELET COUNT, AUTOMATED 353 10^3/uL (150-450); RED BLOOD COUNT 4.73 10^6/uL (4.00-5.40); WHITE BLOOD COUNT 7.4 10^3/uL (4.0-10.0)
--- NOTE | 2020-08-09 15:30 | REPVR ---
PROCEDURE INFORMATION: Exam: CT Head Without Contrast Exam date and time: 08/09/2020 3:17 PM Age: 65 years old Clinical indication: Dizziness; Additional info: Vertigo TECHNIQUE: Imaging protocol: Computed tomography of the head without contrast. Radiation optimization: All CT scans at this facility use at least one of these dose optimization techniques: automated exposure control; mA and/or kV adjustment per patient size (includes targeted exams where dose is matched to clinical indication); or iterative reconstruction. COMPARISON: No relevant prior studies available. FINDINGS: Brain: No acute intracranial hemorrhage, cerebral edema, or midline shift. Cerebral ventricles: No hydrocephalus. Bones/joints: No acute fracture. Paranasal sinuses: There is no acute sinusitis. Mastoid air cells: Visualized mastoid air cells are well aerated. Orbital cavity: Unremarkable as visualized. Soft tissues: Unremarkable. IMPRESSION: No acute intracranial abnormality. Electronically signed by: Rajinder Robbins On 08/09/2020 15:29:55 PM
[2020-08-09] MEDS ORDERED: ELIQ5TAB PO (16:48)
[2020-08-09] MEDS ORDERED: METO1TAB87 PO (16:48)
[2020-08-09] MEDS ORDERED: APIXABAN 5 MG TAB (ELIQUIS) PO ONE (16:50)
[2020-08-09 17:30] VITALS: BP 120/62
[2020-08-09 18:23] VITALS: BP 121/70
--- NOTE | 2020-08-10 07:39 | ECGEPIP ---
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
== END 2020-08-09 18:33 | disposition home or self-care (01) ==
LOC: M ED 13:28
DX: I48.91 Unspecified atrial fibrillation (principal); E11.9 Type 2 diabetes mellitus without complications; I10 Essential (primary) hypertension; B19.20 Unspecified viral hepatitis C without hepatic coma; E03.9 Hypothyroidism, unspecified; G47.33 Obstructive sleep apnea (adult) (pediatric); Z88.8 Allergy status to other drugs, medicaments and biological substances; Z79.899 Other long term (current) drug therapy; F17.200 Nicotine dependence, unspecified, uncomplicated; Z79.01 Long term (current) use of anticoagulants
CPT/HCPCS: 36415; 70450; 71045; 80048; 80076; 82550; 82553; 83690; 83880; 84439; 84443; 84484; 85025; 85610; 85730; 93005; 96374; 99285; G0463

== ENCOUNTER → 2020-10-10 | Outpatient (CLI) | payer OTHER ==
[~2020-10-10] MED LIST changes: +ECOT81TA5 PO; +ELIQ5TAB PO; +MECL-136 PO; +METO1TAB87 PO
== END ==
LOC: M RAD 07:48
PROVIDERS: ATTEND Family Medicine
DX: Z86.19 Personal history of other infectious and parasitic diseases (principal)

== ENCOUNTER → 2020-10-20 | Outpatient (REF) | payer OTHER | LOC: M LAB REF 18:13 | PROVIDERS: ATTEND Physician Assistant | DX: L72.9 Follicular cyst of the skin and subcutaneous tissue, unspecified (principal) | CPT/HCPCS: 11900; 87070; 87077; 87186; G0463; J3301 ==

== ENCOUNTER → 2020-11-09 | Outpatient (REF) | payer OTHER | LOC: M SFHCLERA 15:58 | PROVIDERS: ATTEND Student in an Organized Health Care Education/Training Program | DX: L02.91 Cutaneous abscess, unspecified (principal) | CPT/HCPCS: 87070; 87077; 87186; G0463 ==

== ENCOUNTER → 2021-05-01 | Outpatient (CLI) | payer OTHER, SELFPAY | LOC: M WHC 14:28 | PROVIDERS: ATTEND Student in an Organized Health Care Education/Training Program | DX: Z12.31 Encounter for screening mammogram for malignant neoplasm of breast (principal); Z80.3 Family history of malignant neoplasm of breast ==

== ENCOUNTER → 2021-05-04 | Outpatient (REF) | payer OTHER ==
[2021-05-04 16:45] LABS: ALBUMIN 3.7 GM/DL (3.2-5.2); ALT/SGPT 22 U/L (12-78); BILIRUBIN,TOTAL 0.6 MG/DL (0.2-1.0); BLOOD UREA NITROGEN 6 MG/DL (7-18); CALCIUM LEVEL 8.9 MG/DL (8.8-10.2); CARBON DIOXIDE LEVEL 31 MEQ/L (21-32); CHLORIDE LEVEL 103 MEQ/L (98-107); CHOLESTEROL LEVEL 162 MG/DL (<200); CHOLESTEROL RISK RATIO 2.793 (<5); CREATININE FOR GFR 0.71 MG/DL (0.55-1.30); FREE T4 1.27 NG/DL (0.76-1.46); GLOMERULAR FILTRATION RATE > 60.0 (>45); GLUCOSE, FASTING 98 MG/DL (70-100); HDL CHOLESTEROL 58 MG/DL (>40); LDL CHOLESTEROL 91 MG/DL (<100); NON-HDL-C 104 MG/DL; POTASSIUM SERUM 4.4 MEQ/L (3.5-5.1); SODIUM LEVEL 139 MEQ/L (136-145); TOTAL PROTEIN 7.8 GM/DL (6.4-8.2); TRIGLYCERIDES LEVEL 66 MG/DL (<150)
== END ==
LOC: M WUC 15:36
PROVIDERS: ATTEND Student in an Organized Health Care Education/Training Program
DX: E11.9 Type 2 diabetes mellitus without complications (principal); I10 Essential (primary) hypertension; E03.9 Hypothyroidism, unspecified

== ENCOUNTER → 2022-02-21 | Outpatient (REF) | payer OTHER ==
[~2022-02-21] MED LIST changes: +FLEC50HA; +METO50TA7; +SYNT112T2
[2022-02-21 17:50] LABS: CREATININE, URINE 96.6 MG/DL; MAU/CREAT RATIO 36.2 MCG/MG (0.0-30.0)
[2022-02-21 18:31] LABS: HEMOGLOBIN A1c 6.6 % (4.0-6.0)
== END ==
LOC: M WUC 08:50
PROVIDERS: ATTEND Student in an Organized Health Care Education/Training Program
DX: E11.9 Type 2 diabetes mellitus without complications (principal)

== ENCOUNTER 2022-02-28 12:53 | Emergency (ER) | payer OTHER ==
[~2022-02-28] VITALS: Ht 165.1 cm; Wt 119.4 kg
[2022-02-28 12:53] VITALS: BP 133/60
[~2022-02-28 12:53] MED LIST changes: -FLEC50HA; -METO50TA7; -SYNT112T2
[2022-02-28] MEDS ORDERED: METO50TA7 (13:19)
[2022-02-28] MEDS ORDERED: FLEC50HA (13:19)
[2022-02-28] MEDS ORDERED: SYNT112T2 (13:19)
[2022-02-28 13:53] LABS: BASO % 0.4 % (0.0-1.0); EOS # 0.1 10^3/uL (0.0-0.5); EOS % 0.9 % (0.0-3.0); HEMATOCRIT 39.7 % (36.0-47.0); HEMOGLOBIN 12.7 g/dl (12.0-15.5); LYMPH # 1.6 10^3/uL (1.5-5.0); LYMPH % 14.8 % (24.0-44.0); MEAN CORPUSCULAR HEMOGLOBIN 26.3 pg (27.0-33.0); MEAN CORPUSCULAR VOLUME 82.2 fl (80.0-96.0); MONO # 1.2 10^3/uL (0.0-0.8); MONO % 10.5 % (2.0-8.0); NEUTROPHILS # 8.1 10^3/uL (1.5-8.5); NEUTROPHILS % 73.1 % (36.0-66.0); PLATELET COUNT, AUTOMATED 298 10^3/uL (150-450); RED BLOOD COUNT 4.83 10^6/uL (4.00-5.40)
[2022-02-28 14:06] LABS: INR 1.38; PARTIAL THROMBOPLASTIN TIME 30.9 SECONDS (24.8-34.2); PROTHROMBIN TIME 17.2 SECONDS (12.5-14.5)
[2022-02-28 14:27] LABS: BILIRUBIN,DIRECT 0.4 MG/DL (<0.4)
[2022-02-28 14:28] LABS: ALBUMIN 3.7 G/DL (3.2-5.2); ALKALINE PHOSPHATASE 79 U/L (46-116); ALT/SGPT 43 U/L (7.0-40); AST/SGOT 31 U/L (<34); BILIRUBIN,TOTAL 1.1 MG/DL (0.3-1.2); BLOOD UREA NITROGEN 14 MG/DL (9-23); CARBON DIOXIDE LEVEL 29 MMOL/L (20-31); CHLORIDE LEVEL 100 MMOL/L (98-107); CREATININE FOR GFR 0.74 MG/DL (0.55-1.30); GLOMERULAR FILTRATION RATE > 60.0 (>45); GLUCOSE, FASTING 109 MG/DL (74-106); POTASSIUM SERUM 4.2 MMOL/L (3.5-5.1); SODIUM LEVEL 136 MMOL/L (136-145)
[2022-02-28] MEDS ORDERED: ISOVUE-370 76% 100ML VIAL As Ordered ONE (16:06)
[2022-02-28 17:59] LABS: CK-MB VALUE MASS < 1.0 NG/ML (<3.6); CPK CREATINE PHOSPHOKINASE 107 U/L (34-145); MB/CK RELATIVE INDEX 0.93 (< OR =4)
[2022-02-28 18:09] LABS: CK-MB VALUE MASS < 1.0 NG/ML (<3.6)
[2022-02-28 18:10] LABS: CPK CREATINE PHOSPHOKINASE 94 U/L (34-145); MB/CK RELATIVE INDEX 1.06 (< OR =4)
== END 2022-02-28 18:59 | disposition home or self-care (01) ==
LOC: M ED 12:53
DX: R06.09 Other forms of dyspnea (principal); E11.9 Type 2 diabetes mellitus without complications; Z86.79 Personal history of other diseases of the circulatory system; Z87.891 Personal history of nicotine dependence; Z88.8 Allergy status to other drugs, medicaments and biological substances; Z79.01 Long term (current) use of anticoagulants; Z79.82 Long term (current) use of aspirin; Z79.890 Hormone replacement therapy; Z79.4 Long term (current) use of insulin

== ENCOUNTER → 2022-04-05 | Outpatient (CLI) | payer MEDICARE ==
[~2022-04-05] MED LIST changes: +FLEC50HA; +METO50TA7; +SYNT112T2
== END ==
LOC: M RAD 10:40
PROVIDERS: ATTEND Nurse Practitioner Family
DX: K81.0 Acute cholecystitis (principal); R10.11 Right upper quadrant pain

== ENCOUNTER → 2022-06-05 | Outpatient (CLI) | payer MEDICARE, OTHER ==
[2022-06-05 19:52] LABS: BASO # 0.1 10^3/uL (0.0-0.2); BASO % 0.6 % (0.0-1.0); EOS # 0.1 10^3/uL (0.0-0.5); EOS % 1.4 % (0.0-3.0); HEMATOCRIT 42.4 % (36.0-47.0); LYMPH # 2.2 10^3/uL (1.5-5.0); MEAN CORPUSCULAR HEMOGLOBIN 25.9 pg (27.0-33.0); MEAN CORPUSCULAR HGB CONC 30.7 g/dl (32.0-36.5); MEAN CORPUSCULAR VOLUME 84.5 fl (80.0-96.0); MONO # 1.2 10^3/uL (0.0-0.8); MONO % 15.4 % (2.0-8.0); NEUTROPHILS # 4.3 10^3/uL (1.5-8.5); NEUTROPHILS % 54.2 % (36.0-66.0); PLATELET COUNT, AUTOMATED 322 10^3/uL (150-450); RED BLOOD COUNT 5.02 10^6/uL (4.00-5.40); WHITE BLOOD COUNT 7.9 10^3/uL (4.0-10.0)
[2022-06-05 20:18] LABS: ALBUMIN 3.7 G/DL (3.2-5.2); ALKALINE PHOSPHATASE 79 U/L (46-116); ALT/SGPT 16 U/L (7.0-40); AST/SGOT 14 U/L (<34); BILIRUBIN,TOTAL 0.7 MG/DL (0.3-1.2); BLOOD UREA NITROGEN 10 MG/DL (9-23); CALCIUM LEVEL 9.2 MG/DL (8.3-10.6); CARBON DIOXIDE LEVEL 34 MMOL/L (20-31); CHLORIDE LEVEL 98 MMOL/L (98-107); CHOLESTEROL LEVEL 146 MG/DL (<200); CHOLESTEROL RISK RATIO 2.78 (<5); CREATININE FOR GFR 0.57 MG/DL (0.55-1.30); FREE T4 1.39 NG/DL (0.89-1.76); GLOMERULAR FILTRATION RATE > 60.0 (>45); GLUCOSE, FASTING 78 MG/DL (74-106); HDL CHOLESTEROL 52.4 MG/DL (>40); LDL CHOLESTEROL 78.4 MG/DL (<100); NON-HDL-C 94 MG/DL; POTASSIUM SERUM 4.1 MMOL/L (3.5-5.1); SODIUM LEVEL 138 MMOL/L (136-145); THYROID STIMULATING HORMONE 5.099 uIU/ML (0.55-4.78); TOTAL PROTEIN 7.9 G/DL (5.7-8.2); TRIGLYCERIDES LEVEL 76 MG/DL (<150)
[2022-06-05 20:43] LABS: HEMOGLOBIN A1c 6.8 % (4.0-6.0)
== END ==
LOC: M WUC 14:57
PROVIDERS: ATTEND Student in an Organized Health Care Education/Training Program
DX: E11.9 Type 2 diabetes mellitus without complications (principal); E03.9 Hypothyroidism, unspecified

== ENCOUNTER 2022-08-13 17:46 | Emergency (ER) | payer MEDICARE, OTHER ==
[~2022-08-13] VITALS: Ht 165.1 cm; Wt 124.1 kg
[2022-08-13 17:47] VITALS: BP 149/70
[2022-08-14] MEDS ORDERED: AMLO1TAB24 PO (16:49)
[2022-08-14] MEDS ORDERED: METF10004 PO (16:49)
[2022-08-14] MEDS ORDERED: CEPH500C PO (18:56)
== END 2022-08-13 22:24 | disposition left against medical advice (07) ==
LOC: M ED 17:46
DX: Z53.21 Procedure and treatment not carried out due to patient leaving prior to being seen by health care provider (principal)

== ENCOUNTER 2022-08-14 14:41 | Emergency (ER) | payer MEDICARE, OTHER ==
[~2022-08-14] VITALS: Ht 165.1 cm; Wt 124.8 kg
[2022-08-14 14:42] VITALS: BP 133/63
[2022-08-14] MEDS ORDERED: AMLO1TAB24 PO (16:49)
[2022-08-14] MEDS ORDERED: METF10004 PO (16:49)
[2022-08-14 18:22] LABS: BASO % 0.5 % (0.0-1.0); EOS # 0.2 10^3/uL (0.0-0.5); EOS % 1.8 % (0.0-3.0); HEMATOCRIT 41.5 % (36.0-47.0); HEMOGLOBIN 13.1 g/dl (12.0-15.5); LYMPH # 1.5 10^3/uL (1.5-5.0); LYMPH % 17.2 % (24.0-44.0); MEAN CORPUSCULAR HEMOGLOBIN 26.4 pg (27.0-33.0); MEAN CORPUSCULAR HGB CONC 31.6 g/dl (32.0-36.5); MEAN CORPUSCULAR VOLUME 83.5 fl (80.0-96.0); MONO # 0.8 10^3/uL (0.0-0.8); MONO % 9.2 % (2.0-8.0); NEUTROPHILS # 6.2 10^3/uL (1.5-8.5); PLATELET COUNT, AUTOMATED 342 10^3/uL (150-450); RED BLOOD COUNT 4.97 10^6/uL (4.00-5.40); WHITE BLOOD COUNT 8.8 10^3/uL (4.0-10.0)
[2022-08-14 18:44] LABS: BLOOD UREA NITROGEN 12 MG/DL (9-23); CALCIUM LEVEL 8.8 MG/DL (8.3-10.6); CARBON DIOXIDE LEVEL 32 MMOL/L (20-31); CHLORIDE LEVEL 101 MMOL/L (98-107); CREATININE FOR GFR 0.64 MG/DL (0.55-1.30); GLOMERULAR FILTRATION RATE > 60.0 (>45); GLUCOSE, FASTING 96 MG/DL (74-106); POTASSIUM SERUM 4.4 MMOL/L (3.5-5.1); SODIUM LEVEL 139 MMOL/L (136-145)
[2022-08-14] MEDS ORDERED: CEPHALEXIN 500 MG CAP PO ONE (18:55)
[2022-08-14] MEDS ORDERED: CEPH500C PO (18:56)
== END 2022-08-14 19:16 | disposition home or self-care (01) ==
LOC: M ED 14:41
DX: L03.115 Cellulitis of right lower limb (principal); E11.9 Type 2 diabetes mellitus without complications; E03.9 Hypothyroidism, unspecified; Z86.79 Personal history of other diseases of the circulatory system; Z88.8 Allergy status to other drugs, medicaments and biological substances; Z79.01 Long term (current) use of anticoagulants; Z79.4 Long term (current) use of insulin; Z79.899 Other long term (current) drug therapy

== ENCOUNTER → 2022-09-18 | Outpatient (REF) | payer MEDICARE, OTHER ==
[~2022-09-18] MED LIST changes: +AMLO1TAB24 PO; +CEPH500C PO; +METF10004 PO
[2022-09-18 13:54] LABS: HEMOGLOBIN A1c 6.5 % (4.0-6.0)
== END ==
LOC: M LABWUC 12:17
PROVIDERS: ATTEND Student in an Organized Health Care Education/Training Program
DX: E11.9 Type 2 diabetes mellitus without complications (principal)

== ENCOUNTER → 2022-10-24 | Outpatient (CLI) | payer MEDICARE, OTHER | LOC: M RAD 16:38 | PROVIDERS: ATTEND Student in an Organized Health Care Education/Training Program | DX: Z12.2 Encounter for screening for malignant neoplasm of respiratory organs (principal); F17.210 Nicotine dependence, cigarettes, uncomplicated ==

== ENCOUNTER → 2023-02-11 | Outpatient (CLI) | payer MEDICARE, OTHER ==
[~2023-02-11] MED LIST changes: -METO50TA7; +METO50TA7 PO
[2023-02-11 16:46] LABS: ALBUMIN 3.4 G/DL (3.2-5.2); ALKALINE PHOSPHATASE 85 U/L (46-116); ALT/SGPT 21 U/L (7.0-40); AST/SGOT 18 U/L (<34); BILIRUBIN,TOTAL 0.8 MG/DL (0.3-1.2); BLOOD UREA NITROGEN 7 MG/DL (9-23); CALCIUM LEVEL 9.1 MG/DL (8.3-10.6); CARBON DIOXIDE LEVEL 32 MMOL/L (20-31); CHLORIDE LEVEL 101 MMOL/L (98-107); CHOLESTEROL LEVEL 160 MG/DL (<200); CHOLESTEROL RISK RATIO 3.57 (<5); CREATININE FOR GFR 0.59 MG/DL (0.55-1.30); GLOMERULAR FILTRATION RATE > 60.0 (>45); GLUCOSE, FASTING 102 MG/DL (74-106); HDL CHOLESTEROL 44.8 MG/DL (>40); LDL CHOLESTEROL 103.8 MG/DL (<100); NON-HDL-C 115.2 MG/DL; POTASSIUM SERUM 4.3 MMOL/L (3.5-5.1); SODIUM LEVEL 140 MMOL/L (136-145); TOTAL PROTEIN 7.7 G/DL (5.7-8.2); TRIGLYCERIDES LEVEL 57 MG/DL (<150)
[2023-02-11 16:49] LABS: THYROID STIMULATING HORMONE 1.749 uIU/ML (0.55-4.78)
[2023-02-11 16:50] LABS: VITAMIN B12 LEVEL 454 PG/ML (211-911)
[2023-02-11 17:12] LABS: HEMOGLOBIN A1c 6.4 % (4.0-6.0)
[2023-02-11 17:52] LABS: CREATININE, URINE 348.4 MG/DL; MAU/CREAT RATIO 70.3 MCG/MG (0.0-30.0)
== END ==
LOC: M WUC 11:48
PROVIDERS: ATTEND Family Medicine
DX: E03.9 Hypothyroidism, unspecified (principal); E11.9 Type 2 diabetes mellitus without complications; E78.2 Mixed hyperlipidemia; R41.3 Other amnesia

== ENCOUNTER 2023-12-03 17:01 | Emergency (ER) | payer MEDICARE, OTHER, SELFPAY ==
[~2023-12-03] VITALS: Ht 165.1 cm; Wt 115.2 kg
[~2023-12-03 17:01] MED LIST changes: +LEXA1TAB PO
[2023-12-03 17:15] VITALS: TEMP 97.7
[2023-12-03 17:52] LABS: BASO % 0.6 % (0.0-1.0); EOS # 0.1 10^3/uL (0.0-0.5); EOS % 1.2 % (0.0-3.0); HEMATOCRIT 43.8 % (36.0-47.0); HEMOGLOBIN 13.9 g/dl (12.0-15.5); LYMPH # 1.2 10^3/uL (1.5-5.0); LYMPH % 17.8 % (24.0-44.0); MEAN CORPUSCULAR HEMOGLOBIN 26.6 pg (27.0-33.0); MEAN CORPUSCULAR HGB CONC 31.7 g/dl (32.0-36.5); MEAN CORPUSCULAR VOLUME 83.9 fl (80.0-96.0); MONO # 0.8 10^3/uL (0.0-0.8); MONO % 12.1 % (2.0-8.0); NEUTROPHILS # 4.5 10^3/uL (1.5-8.5); PLATELET COUNT, AUTOMATED 290 10^3/uL (150-450); RED BLOOD COUNT 5.22 10^6/uL (4.00-5.40); WHITE BLOOD COUNT 6.7 10^3/uL (4.0-10.0)
[2023-12-03] MEDS: MECLIZINE 25 MG TABLET PO ONE (17:54)
[2023-12-03] MEDS: diazePAM 10MG/2ML SYRINGE IV ONE (17:54)
[2023-12-03 18:05] LABS: INR 1.34; PARTIAL THROMBOPLASTIN TIME 32.4 SECONDS (24.8-34.2); PROTHROMBIN TIME 16.2 SECONDS (12.5-14.5)
[2023-12-03 18:27] LABS: BLOOD UREA NITROGEN 10 MG/DL (9-23); CALCIUM LEVEL 9.3 MG/DL (8.3-10.6); CARBON DIOXIDE LEVEL 35 MMOL/L (20-31); CHLORIDE LEVEL 100 MMOL/L (98-107); CREATININE FOR GFR 0.53 MG/DL (0.55-1.30); GLOMERULAR FILTRATION RATE > 60.0 (>45); GLUCOSE, FASTING 106 MG/DL (74-106); POTASSIUM SERUM 4.5 MMOL/L (3.5-5.1); SODIUM LEVEL 134 MMOL/L (136-145)
[2023-12-03 20:01] VITALS: BP 168/79
[2023-12-03] MEDS ORDERED: VALI5TAB PO (20:20)
[2023-12-03 20:21] VITALS: O2SAT 93
[2023-12-07 20:03] LABS: LYME TOTAL ANTIBODY CIA <= 0.90 Index (<=0.90)
== END 2023-12-03 20:44 | disposition home or self-care (01) ==
LOC: M ED 17:01 → EDBD 17:01 → M ED 20:44
DX: H81.4 Vertigo of central origin (principal); I48.91 Unspecified atrial fibrillation; E11.9 Type 2 diabetes mellitus without complications; I10 Essential (primary) hypertension; Z86.79 Personal history of other diseases of the circulatory system; Z88.8 Allergy status to other drugs, medicaments and biological substances; Z79.01 Long term (current) use of anticoagulants; Z79.4 Long term (current) use of insulin; Z79.899 Other long term (current) drug therapy
CPT/HCPCS: 70551; 71045; 80048; 85025; 85610; 85730; 86618; 93005; 93041; 94760; 96374; 99285; J3360

== ENCOUNTER 2024-07-01 10:03 | Emergency (ER) | payer MEDICARE, SELFPAY ==
[~2024-07-01] VITALS: Ht 165.1 cm; Wt 116.0 kg
[~2024-07-01 10:03] MED LIST changes: +VALI5TAB PO
[2024-07-01 11:36] LABS: BASO % 0.7 % (0.0-1.0); EOS # 0.1 10^3/uL (0.0-0.5); EOS % 2.3 % (0.0-3.0); HEMATOCRIT 43.8 % (36.0-47.0); HEMOGLOBIN 14.5 g/dl (12.0-15.5); LYMPH # 1.3 10^3/uL (1.5-5.0); LYMPH % 21.5 % (24.0-44.0); MEAN CORPUSCULAR HEMOGLOBIN 26.8 pg (27.0-33.0); MEAN CORPUSCULAR HGB CONC 33.1 g/dl (32.0-36.5); MEAN CORPUSCULAR VOLUME 80.8 fl (80.0-96.0); MONO # 0.8 10^3/uL (0.0-0.8); MONO % 12.3 % (2.0-8.0); NEUTROPHILS # 3.9 10^3/uL (1.5-8.5); PLATELET COUNT, AUTOMATED 280 10^3/uL (150-450); RED BLOOD COUNT 5.42 10^6/uL (4.00-5.40); WHITE BLOOD COUNT 6.1 10^3/uL (4.0-10.0)
[2024-07-01] MEDS: ACETAMINOPHEN *IV* 1,000 MG in IV 1 EA IV ONE (12:50)
[2024-07-01 13:58] LABS: LIPASE 37 U/L (12-53)
[2024-07-01 14:05] LABS: ALBUMIN 3.3 G/DL (3.2-5.2); ALKALINE PHOSPHATASE 83 U/L (35-104); ALT/SGPT 19 U/L (7.0-40); AST/SGOT 15 U/L (<34); BILIRUBIN,DIRECT 0.4 MG/DL (<0.4); BILIRUBIN,TOTAL 0.9 MG/DL (0.3-1.2); BLOOD UREA NITROGEN 7 MG/DL (9-23); CALCIUM LEVEL 9.2 MG/DL (8.3-10.6); CARBON DIOXIDE LEVEL 35 MMOL/L (20-31); CHLORIDE LEVEL 98 MMOL/L (98-107); CREATININE FOR GFR 0.58 MG/DL (0.55-1.30); GLOMERULAR FILTRATION RATE > 60.0 (>45); GLUCOSE, FASTING 96 MG/DL (74-106); POTASSIUM SERUM 4.8 MMOL/L (3.5-5.1); SODIUM LEVEL 136 MMOL/L (136-145); TOTAL PROTEIN 7.8 G/DL (5.7-8.2)
[2024-07-01 21:25] VITALS: BP 140/92; TEMP 98; O2SAT 96
[2024-07-01] MEDS ORDERED: ONDA-282 PO (21:53)
[2024-07-01] MEDS ORDERED: PROT20TA11 PO (21:53)
== END 2024-07-01 22:01 | disposition home or self-care (01) ==
LOC: M ED 10:03
DX: K80.66 Calculus of gallbladder and bile duct with acute and chronic cholecystitis without obstruction (principal); K83.8 Other specified diseases of biliary tract; I10 Essential (primary) hypertension; E11.9 Type 2 diabetes mellitus without complications; Z86.79 Personal history of other diseases of the circulatory system; Z88.8 Allergy status to other drugs, medicaments and biological substances; Z79.01 Long term (current) use of anticoagulants; Z79.02 Long term (current) use of antithrombotics/antiplatelets; Z79.4 Long term (current) use of insulin; Z79.899 Other long term (current) drug therapy
CPT/HCPCS: 74181; 76705; 80048; 80076; 83690; 85025; 93005; 96374; 99284; J0131

== ENCOUNTER → 2024-08-06 | Outpatient (CLI) | payer MEDICARE, OTHER ==
[~2024-08-06] MED LIST changes: +ONDA-282 PO; +PROT20TA11 PO
== END ==
LOC: M WHC 13:51
PROVIDERS: ATTEND Nurse Practitioner Family
DX: Z12.31 Encounter for screening mammogram for malignant neoplasm of breast (principal); R92.333 Mammographic heterogeneous density, bilateral breasts

== ENCOUNTER 2024-12-17 07:25 | Inpatient (IN) | payer OTHER, MEDICARE ==
[~2024-12-17] VITALS: Ht 165.1 cm; Wt 114.5 kg
[2024-12-17] VITALS (9 sets, daily range): BP systolic 140–180; BP diastolic 65–100; TEMP 96.2–97.5; O2SAT 93–100
[~2024-12-17 07:25] MED LIST changes: +ACETAMINOPHEN 1000MG/100ML IV BAG As Ordered ONE; +LIDOCAINE 2% 100 MG/5 ML SDV (FOR ANES.) As Ordered ONE; +MIDAZOLAM INJ 2 MG/2 ML VIAL As Ordered ONE; +ONDANSETRON 4MG 2ML VIAL As Ordered ONE; +ROCURONIUM BROMIDE 50MG/5ML VIAL As Ordered ONE; -SYNT112T2; +SYNT112T2 PO; +VITA200012 PO; +dexAMETHasone 4 MG/ML 1 ML VIAL As Ordered ONE
[2024-12-17] MEDS ORDERED: KETOROLAC 30 MG/ML 1 ML VIAL As Ordered ONE (07:52)
[2024-12-17] MEDS ORDERED: SUGAMMADEX SODIUM 500 MG/5 ML VIAL As Ordered ONE (07:52)
[2024-12-17] MEDS: LR 1,000 ML IV SCH (08:04)
[2024-12-17] MEDS ORDERED: ETOMIDATE 20 MG/10 ML VIAL As Ordered ONE (08:27)
[2024-12-17] MEDS ORDERED: ESMOLOL 100 MG/10 ML VIAL As Ordered ONE (08:29)
[2024-12-17] MEDS ORDERED: LABETALOL 100 MG/20 ML VIAL As Ordered ONE (09:42)
[2024-12-17] MEDS ORDERED: ONDANSETRON 4MG 2ML VIAL IV PRN (10:10)
[2024-12-17] MEDS: ONDANSETRON 4MG 2ML VIAL IV PRN (10:23)
[2024-12-17] MEDS: HYDROMORPHONE HCL 0.5 MG/0.5 ML SYRINGE IV PRN (10:39)
[2024-12-17] MEDS ORDERED: ELIQ5TAB PO (12:12)
[2024-12-17] MEDS ORDERED: HOME MED LIST COMPLETE! XX SCH (12:15)
[2024-12-17] MEDS: ATORVASTATIN 10 MG TAB PO SCH (14:20)
[2024-12-17] MEDS: hydroCHLOROthiazide 25 MG TAB PO SCH (14:21)
[2024-12-17] MEDS: VALSARTAN 80MG TAB PO SCH (14:22)
[2024-12-17] MEDS: METOPROLOL TART 50 MG TAB PO SCH (14:22)
[2024-12-17] MEDS: SENNOSIDES/DOCUSATE SODIUM 8.6 MG/50MG TAB PO SCH (20:35)
[2024-12-18 00:45] VITALS: BP 146/94; TEMP 97.1; O2SAT 95
[2024-12-18 04:00] VITALS: BP 146/89; TEMP 97; O2SAT 99
[2024-12-18 08:36] VITALS: BP 146/89
[2024-12-18] MEDS: KETOROLAC 30 MG/ML 1 ML VIAL IV PRN (08:42)
[2024-12-18 08:45] VITALS: BP 144/78; TEMP 97.5; O2SAT 97
== END 2024-12-18 11:22 | disposition home or self-care (01) | DRG 418 ==
LOC: M SDC 07:25 → M RR INP 10:09 → M MS4PR 12:00
PROVIDERS: ADMIT Surgery; ATTEND Surgery
PROC: 8E0W4CZ Robotic Assisted Procedure of Trunk Region, Percutaneous Endoscopic Approach (ICD-10-PCS; 2024-12-09)
PROC: 0FT44ZZ Resection of Gallbladder, Percutaneous Endoscopic Approach (ICD-10-PCS; principal; 2024-12-17 09:15)
DX: K80.20 Calculus of gallbladder without cholecystitis without obstruction (principal); Z68.41 Body mass index [BMI] 40.0-44.9, adult; I48.19 Other persistent atrial fibrillation; Z22.2 Carrier of diphtheria; I10 Essential (primary) hypertension; E03.9 Hypothyroidism, unspecified; E78.2 Mixed hyperlipidemia; E11.9 Type 2 diabetes mellitus without complications; E55.9 Vitamin D deficiency, unspecified; E66.01 Morbid (severe) obesity due to excess calories; G47.33 Obstructive sleep apnea (adult) (pediatric); R01.1 Cardiac murmur, unspecified; Z87.891 Personal history of nicotine dependence